=== PATIENT | female | born 1945 | race American Indian/Alaskan Native ===

== ENCOUNTER 2016-11-23 15:49 | Emergency (ER) | payer MEDICARE ==
[2016-11-23 16:00] VITALS: RESP 20
--- NOTE | 2016-11-23 16:57 | C.PDOC ---
History Of Present Illness 71 y/o female presents to the ED with complains of pain and persistent swelling to right wrist. Pt was sitting on a bar stool and fell landing on wrist 2 hours [employer]. Pt denies numbness, weakness or any other complaints. Time Seen by Provider: 11/23/16 16:12 Chief Complaint (Nursing): Finger,Hand,&Wrist History Per: Patient History/Exam Limitations: no limitations Onset/Duration Of Symptoms: Hrs Current Symptoms Are (Timing): Still Present Quality: "Pain" Severity: Moderate Recent travel outside of the [place]: No Past Medical History Reviewed: Historical Data, Nursing Documentation, Vital Signs Vital Signs: Last Vital Signs Temp 98.1 F 11/23/16 18:39 Pulse 66 11/23/16 18:39 Resp 20 11/23/16 18:39 BP 121/82 11/23/16 18:39 Pulse Ox 97 11/23/16 18:39 - Medical History PMH: HTN Family History: States: Unknown Family Hx - Social History Hx Alcohol Use: No Hx Substance Use: No - Immunization History Hx Influenza Vaccination: Yes (2016) Hx Pneumococcal Vaccination: No Review Of Systems Except As Marked, All Systems Reviewed And Found Negative. Musculoskeletal: Positive for: Other (pain and swelling to right wrist) Neurological: Negative for: Weakness, Numbness Physical Exam - Physical Exam Appears: Non-toxic, No Acute Distress Skin: Warm, Dry, No Rash Head: Atraumatic, Normacephalic Eye(s): bilateral: Normal Inspection, PERRL, EOMI Cardiovascular: Rhythm Regular Respiratory: Normal Breath Sounds, No Rales, No Rhonchi, No Wheezing Extremity: Normal ROM (full ROM to fingers, limited ROM to right wrist secondary to pain), Tenderness (right dorsal wrist), Capillary Refill (<2 seconds), Deformity (right wrist), Swelling (right dorsal wrist) Pulses: Right Radial: Normal Neurological/Psych: Oriented x3, Normal Speech, Normal Motor, Normal Sensation ED Course And Treatment O2 Sat by Pulse Oximetry: 100 (on room air) Pulse Ox Interpretation: Normal - Other Rad Right wrist X-Ray: Interpreted by Me Interpretation: non-displaced comminuted distal radius fracture Progress Note: Plan: XR right wrist, Tylenol Orthopedic Time Performed: 18:00 Time Out: Side verified, Site verified Procedure: Splint Other:: Geena german Consent obtained: Verbal Performed by: Mid-level Provider (Zaira) Diagnosis: Fracture Type: Closed, Comminuted Location: Distal Bone: Radius Capillary refill: Normal Distal Sensation: Normal Distal Motor Function: Normal Capillary Refill: Normal Compartment: Normal, Soft, Nontender Distal Sensation: Normal Distal Motor Function: Normal Patient tolerated procedure: Well Disposition - Disposition Referrals: Pablo Aragon III, MD [Staff Provider] - Daphne Henson MD [Staff Provider] - Disposition: HOME/ ROUTINE Disposition Time: 18:00 Condition: GOOD Additional Instructions: Follow up with your orthopedist within 3-5 days. Return if worsened. Prescriptions: Acetaminophen [Tylenol] 325 mg PO Q6 PRN #30 tab PRN Reason: Pain, Mild (1-3) traMADol [Ultram] 50 mg PO Q6 #20 tab Instructions: Wrist Fracture in Adults (ED) - Clinical Impression Clinical Impression: Wrist fracture - PA / LENDING MANAGER / Resident Statement MD/DO has reviewed & agrees with the documentation as recorded. - Scribe Statement The provider has reviewed the documentation as recorded by the Sierraibандрей Bunch All medical record entries made by the Joey were at my direction and personally dictated by me. I have reviewed the chart and agree that the record accurately reflects my personal performance of the history, physical exam, medical decision making, and the department course for this patient. I have also personally directed, reviewed, and agree with the discharge instructions and disposition.
[2016-11-23 18:40] VITALS: BP 121/82; PULSE 66; TEMP 98.1
--- NOTE | 2016-11-24 13:02 | RAD ---
PROCEDURE: Right Wrist Radiographs. HISTORY: wrist injury and pain COMPARISON: None. FINDINGS: BONES: Impacted nondisplaced distal radial fracture, likely intra-articular. JOINTS: Normal. No dislocation. SOFT TISSUES: There is bowing of the pronator fat pad consistent with hemarthrosis. OTHER FINDINGS: None. IMPRESSION: Impacted nondisplaced distal radial fracture.
[2016-11-24 22:27] VITALS: O2SAT 100
== END 2016-11-23 19:19 | disposition home or self-care (01) ==
LOC: C.ER 15:49
DX: S52.591A Other fractures of lower end of right radius, initial encounter for closed fracture (principal); W07.XXXA Fall from chair, initial encounter